=== PATIENT | female | born 1960 ===

== ENCOUNTER 2016-12-25 16:37 | Emergency (ER) | payer BC ==
[2016-12-25 17:19] VITALS: BP 121/76
--- NOTE | 2016-12-25 17:49 | UC ---
Skin Complaint HPI - History of Current Complaint Chief Complaint: UCSkin Time Seen by Provider: 12/25/16 17:43 Stated Complaint: SWOLLEN LIP Hx Obtained From: Patient ?: No Onset/Duration: Sudden Onset - This morning recurrance of the angioedema. Had loratidine, Lasting Hours - 8, Still Present Timing: Constant Onset Severity: Moderate Current Severity: Moderate Location: Face - on the lips Character: Swelling Alleviating: Antihistamines - not helping like usual Associated Signs & Symptoms: Positive: Abdominal Pain - yesterday. Negative: Nausea, Difficulty Breathing, Throat Tightening Related History: Other: - stress - Allergy/Home Medications Allergies/Adverse Reactions: Allergies Allergy/AdvReac Type Severity Reaction Status Date / Time Cephalexin Allergy Swelling Verified 12/25/16 17:19 Penicillins Allergy Swelling Verified 12/25/16 17:19 Of Face,Lips,& Throat Home Medications: Home Medications Cetirizine* [ZyrTEC 10 MG TAB*] 10 mg PO DAILY 12/25/16 [History Confirmed 12/25] Levothyroxine TAB* [Synthroid TAB*] 100 mcg PO DAILY 12/25/16 [History Confirmed 12/25/16] Loratadine [Claritin 10 MG CAP] 10 mg PO DAILY 12/25/16 [History Confirmed 12/25] diPHENhydraMINE PO* [Benadryl PO 25 MG TAB*] 25 mg PO TID PRN 12/25/16 [History Confirmed 12/25/16] Review of Systems Skin: Other - angioedema on the lips All Other Systems Reviewed And Are Negative: Yes PMH/Surg Hx/FS Hx/Imm Hx Endocrine History: Hypothyroidism - Surgical History Surgical History: Yes Surgery Procedure, Year, and Place: COSMETIC SX. - Family History Known Family History: Positive: Cardiac Disease Negative: Hypertension, Diabetes - Social History Occupation: Employed Full-time Lives: With Family Alcohol Use: Rare Substance Use Type: None Smoking Status (MU): Never Smoked Tobacco Have You Smoked in the Last Year: No Physical Exam Triage Information Reviewed: Yes Appearance: Well-Appearing, No Pain Distress, Well-Nourished Vital Signs: Initial Vital Signs Temp 98.2 F 12/25/16 17:11 Pulse 66 12/25/16 17:11 Resp 12 12/25/16 17:11 BP 121/76 12/25/16 17:11 Pulse Ox 99 12/25/16 17:11 Vital Signs Reviewed: Yes ENT: Positive: Pharynx normal, TMs normal, Other: - upper lip with angioedema on the right side. Neck exam: Normal Respiratory Exam: Normal Cardiovascular Exam: Normal Musculoskeletal Exam: Normal Neurological Exam: Normal Psychological Exam: Normal Skin: Positive: Other - lip angioedema Course/Dx - Differential Diagnoses - Skin Complaint Differential Diagnoses: Allergic Reaction, Angioedema, Contact Dermatitis - Diagnoses Provider Diagnoses: Angioedema of the lips Discharge - Discharge Plan Condition: Stable Disposition: HOME Patient Education Materials: Angioedema (ED), Prednisone (By mouth) Additional Instructions: Enjoy your vacation. You can consider Zyrtec in the evening and Jacqueline in the morning for better antihistamine coverage.
[2016-12-25] MEDS: predniSONE TAB* 20 MG PO ONE ×2 (18:11→18:15)
== END 2016-12-25 18:16 | disposition home or self-care (01) ==
LOC: UCCORT 16:37
DX: T78.3XXA Angioneurotic edema, initial encounter (principal); E03.9 Hypothyroidism, unspecified; X58.XXXA Exposure to other specified factors, initial encounter; Z88.1 Allergy status to other antibiotic agents; Z88.0 Allergy status to penicillin
CPT/HCPCS: 99202; G0463; J7512